=== PATIENT | female | born 1960 | race Caucasian/White ===

== ENCOUNTER 2024-05-01 17:58 | Emergency (ER) | payer OTHER, MEDICAID ==
[~2024-05-01] VITALS: Ht 170.2 cm; Wt 98.0 kg
[2024-05-01 18:00] VITALS: BP_SYST 145; PULSE 66; RESP 18; TEMP 97.5; O2SAT 98
[2024-05-01] MEDS: HYDROcodone/ACETAMIN 10-325 MG TAB PO ONE (20:45)
[2024-05-01] MEDS: KETOROLAC TROMETHAMINE 30 MG VIAL IM ONE (20:45)
[2024-05-01] MEDS ORDERED: IBUP-1969 PO (21:50)
[2024-05-01] MEDS ORDERED: HYDR-3927 PO (21:50)
[2024-05-01 22:01] VITALS: BP_SYST 145; PULSE 66; RESP 18; TEMP 97.5; O2SAT 98
== END 2024-05-01 22:01 | disposition home or self-care (01) ==
LOC: SED 17:58 → EDBD 17:58 → SED 22:01
DX: S52.124A Nondisplaced fracture of head of right radius, initial encounter for closed fracture (principal); W18.39XA Other fall on same level, initial encounter; Y93.89 Activity, other specified; Y92.89 Other specified places as the place of occurrence of the external cause; Y99.8 Other external cause status
CPT/HCPCS: 99284; 96374; 29105; 73080; 73090; J1885